=== PATIENT | male | born 1965 | race Caucasian/White ===

== ENCOUNTER 2017-01-11 22:43 | Emergency (ER) | payer SELFPAY ==
[2017-01-11 22:51] VITALS: BP 187/104; BMI 27.4
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
[2017-01-11] MEDS ORDERED: DUONEB 0.5 MG/3 MG ONE (23:12)
[2017-01-11] MEDS ORDERED: CATAPRES TAB 0.1 MG PO ONE (23:30)
[2017-01-11] MEDS ORDERED: CATAPRES TAB 0.1 MG ONE (23:36)
[2017-01-11] MEDS ORDERED: NS 1000 ML 1,000 ML ONE (23:40)
[2017-01-11] MEDS ORDERED: NS 1000 ML 1,000 ML IV SCH (23:45)
[2017-01-11 23:51] LABS: BASOPHILS # (AUTO) 0.1 X10^3/uL (0.0-0.1); BASOPHILS % (AUTO) 0.9 % (0.2-1.0); EOSINOPHILS # (AUTO) 0.1 x10^3/uL (0.0-0.2); EOSINOPHILS % (AUTO) 0.9 % (0.9-2.9); HEMOGLOBIN 14.3 g/dL (13.5-18.0); LYMPHOCYTES # (AUTO) 2.4 X10^3/uL (1.3-2.9); LYMPHOCYTES % (AUTO) 30.5 % (21.0-51.0); MEAN CORPUSCULAR HEMOGLOBIN 36.2 pg (27.0-34.0); MEAN CORPUSCULAR HGB CONC 35.6 g/dL (33.0-35.0); MEAN CORPUSCULAR VOLUME 101.6 fL (80.0-100.0); MEAN PLATELET VOLUME 7.9 fL (7.4-11.0); MONOCYTES # (AUTO) 1.1 x10^3/uL (0.3-0.8); MONOCYTES % (AUTO) 14.4 % (0.0-13.0); NEUTROPHILS # (AUTO) 4.2 x10^3/uL (2.2-4.8); NEUTROPHILS % (AUTO) 53.3 % (42.0-75.0); PLATELET COUNT 149 X10^3/uL (150.0-450.0); RED BLOOD COUNT 3.94 X10^6/uL (4.7-6.0); RED CELL DISTRIBUTION WIDTH 12.6 % (11.6-16.5)
[2017-01-12 00:10] LABS: BLOOD UREA NITROGEN 12 mg/dL (7-18); CALCIUM 8.8 mg/dL (8.5-10.1); CARBON DIOXIDE 31.7 mmol/L (21-32); CHLORIDE 106 mmol/L (98-107); CREATININE 0.96 mg/dL (0.70-1.30); GLUCOSE 97 mg/dL (65-99); SODIUM 141 mmol/L (136-145); TROPONIN I < 0.02 ng/mL (0-1.5); eGFR BLACK RACES > 60 (>60); eGFR NON BLACK RACES > 60 (>60)
[2017-01-12 00:13] LABS: ALANINE AMINOTRANSFERASE 41 Units/L (12-78); ALBUMIN 3.7 g/dL (3.4-5.0); ALKALINE PHOSPHATASE 60 Units/L (46-116); ASPARTATE AMINO TRANSFERASE 31 Units/L (15-37); CKMB % 0.7 % (<4); CREATINE KINASE 191 Units/L (39-308); CREATINE KINASE MB 1.3 ng/mL (0-4.0); MAGNESIUM 1.9 mg/dL (1.7-2.9); PHOSPHORUS 3.1 mg/dL (2.6-4.7); TOTAL PROTEIN 7.1 g/dL (6.4-8.2)
--- NOTE | 2017-01-12 01:15 | RAD ---
Chest, one view Indication: Chest pain. Comparison: None Findings: The cardiac silhouette is unremarkable. There is a metallic hyperdensity measuring 1.1 cm overlying the left upper chest. No focal infiltrates or pleural effusion identified. The bony thorax is unremarkable. Impression: No acute chest process identified. 1.1 cm metallic hyperdensity overlies the left upper chest. This cannot be localized on this single view study. Recommend correlation. Reported By:
== END 2017-01-12 01:30 | disposition home or self-care (01) ==
LOC: ER 22:43
DX: R07.89 Other chest pain (principal)
CPT/HCPCS: 36415; 71010; 80053; 82550; 82553; 83735; 84100; 84484; 85025; 85610; 93005; 93010; 96365; 99283; A4222; J7620